=== PATIENT | male | born 1955 | race Caucasian/White ===

== ENCOUNTER 2018-06-28 19:58 | Emergency (ER) | payer OTHER ==
[2018-06-28] MEDS ORDERED: Albuterol/Ipratropium 3.0-0.5 MG/3 ML Neb Soln NEB ONE (20:19)
[2018-06-28] MEDS ORDERED: Sodium Chloride 0.9% 10 ML Syringe FLUSH PRN (20:21)
--- NOTE | 2018-06-28 20:23 | EDM.PDOC ---
ED HPI GENERAL MEDICAL PROBLEM - General Chief Complaint: Respiratory Problem Stated Complaint: SOB Time Seen by Provider: 06/28/18 20:01 Source of Information: Reports: Patient History Limitations: Reports: No Limitations - History of Present Illness INITIAL COMMENTS - FREE TEXT/NARRATIVE: 63-year-old male presents for evaluation and treatment of shortness of breath. Patient states that this is has been going on for several weeks and is progressively getting worse. Reports associated symptoms of a productive cough and lightheadedness. He denies any chest pain, abdominal pain, fevers, chills, lightheadedness, dizziness, ear pain or throat pain. States he is coughing up a thick sputum. He also reports swelling in his legs recently. Denies any chronic lung condition such as COPD or asthma. Reports a non confirmed diagnosis of muscular dystrophy. States he has been told by one hospital he had MD and another he had a negative biposy. Primary care provider was Jeanette Del Rosario, he has not established any primary care provider since she has left. - Related Data Allergies Allergy/AdvReac Type Severity Reaction Status Date / Time No Known Allergies Allergy Verified 06/28/18 20:19 Home Meds: Home Meds Furosemide [Lasix] 20 mg PO DAILY #14 tab 06/28/18 [Rx] Potassium Chloride [Klor-Con 10] 10 meq PO DAILY #14 tab.er 06/28/18 [Rx] ED ROS GENERAL - Review of Systems Review Of Systems: See Below Constitutional: Denies: Fever, Chills HEENT: Denies: Ear Pain, Throat Pain Respiratory: Reports: Shortness of Breath, Cough, Sputum Cardiovascular: Reports: Lightheadedness. Denies: Chest Pain GI/Abdominal: Denies: Abdominal Pain, Nausea, Vomiting Musculoskeletal: Reports: Leg Pain (reports leg swelling) Neurological: Denies: Syncope ED EXAM, GENERAL - Physical Exam Exam: See Below Exam Limited By: No Limitations General Appearance: Alert, WD/WN, Moderate Distress, Thin Eye Exam: Bilateral Eye: Normal Inspection Ears: Normal External Exam Nose: Normal Inspection Throat/Mouth: Normal Inspection, Normal Lips, Normal Oropharynx, Normal Voice, No Airway Compromise Respiratory/Chest: No Respiratory Distress, Decreased Breath Sounds, Other ( pectus excavatum). No: Crackles, Rhonchi Cardiovascular: Normal Peripheral Pulses, Regular Rate, Rhythm, No Murmur GI/Abdominal: Soft, Non-Tender Extremities: Other (1+ pitting edema bilaterally) Neurological: Alert, Oriented, Normal Cognition Psychiatric: Normal Affect, Normal Mood Skin Exam: Warm, Dry, Normal Color EKG INTERPRETATION EKG Date: 06/28/18 Time: 20:30 Rhythm: NSR Rate (Beats/Min): 94 Point: Normal P-Wave: Present QRS: Normal ST-T: Normal QT: Normal Comparison: NA - No Prior EKG EKG Interpretation Comments: Sinus rhythm at 94 bpm. Early R-wave transition. Right ventricular hypertrophy pattern. Right axis deviation. Considered old posterior wall LA. T-wave inversion V1 through V3 -consider anterior wall ischemia cannot be ruled out. Biatrial hypertrophy. Reviewed by myself and Dr. Spring. Course - Vital Signs Last Recorded V/S: Last Vital Signs Temp 97.1 F 06/28/18 20:11 Pulse 98 06/28/18 20:11 Resp 16 06/28/18 20:11 BP 149/96 H 06/28/18 20:11 Pulse Ox 97 06/28/18 20:36 - Orders/Labs/Meds Labs: Laboratory Tests 06/28/18 06/28/18 06/28/18 Range/Units 20:28 20:28 20:28 WBC 6.25 (4.23-9.07) K/mm3 RBC 4.91 (4.63-6.08) M/mm3 Hgb 16.9 (13.7-17.5) gm/L Hct 51.3 H (40.1-51.0) % MCV 104.5 H (79.0-92.2) fl MCH 34.4 H (25.7-32.2) pg MCHC 32.9 (32.2-35.5) g/dl RDW Std Deviation 57.1 H (35.1-43.9) fL Plt Count 140 L (163-337) K/mm3 MPV 11.1 (9.4-12.3) fl Neutrophils % (Manual) 62 H (40-60) % Band Neutrophils % 0 (0-10) % Lymphocytes % (Manual) 33 (20-40) % Atypical Lymphs % 0 % Monocytes % (Manual) 4 (2-10) % Eosinophils % (Manual) 1 (0.8-7.0) % Basophils % (Manual) 0 L (0.2-1.2) Platelet Estimate Adequate RBC Morph Comment Normal D-Dimer, Quantitative 0.30 (0.19-0.50) mg/L Sodium 144 (136-145) mEq/L Potassium 4.3 (3.5-5.1) mEq/L Chloride 105 (98-107) mEq/L Carbon Dioxide 35 H (21-32) mEq/L Anion Gap 8.3 (5-15) BUN 13 (7-18) mg/dL Creatinine 0.8 (0.7-1.3) mg/dL Est Cr Clr Drug Dosing 125.36 mL/min Estimated GFR (MDRD) > 60 (>60) mL/min BUN/Creatinine Ratio 16.3 (14-18) Glucose 154 H (80-115) mg/dL Calcium 8.5 (8.5-10.1) mg/dL Total Bilirubin 0.6 (0.2-1.0) mg/dL AST 26 (15-37) U/L ALT 26 (16-63) U/L Alkaline Phosphatase 65 (46-116) U/L Creatine Kinase (39-308) U/L CK-MB (CK-2) (0-3.6) ng/ml Troponin I 0.032 (0.00-0.056) ng/mL C-Reactive Protein < 0.2 (<1.0) mg/dL NT-Pro-B Natriuret Pep (0-125) pg/mL Total Protein 6.1 L (6.4-8.2) g/dl Albumin 3.1 L (3.4-5.0) g/dl Globulin 3.0 gm/dL Albumin/Globulin Ratio 1.0 (1-2) TSH 3rd Generation (0.358-3.74) uIU/mL 06/28/18 06/28/18 06/28/18 Range/Units 20:28 20:28 20:28 WBC (4.23-9.07) K/mm3 RBC (4.63-6.08) M/mm3 Hgb (13.7-17.5) gm/L Hct (40.1-51.0) % MCV (79.0-92.2) fl MCH (25.7-32.2) pg MCHC (32.2-35.5) g/dl RDW Std Deviation (35.1-43.9) fL Plt Count (163-337) K/mm3 MPV (9.4-12.3) fl Neutrophils % (Manual) (40-60) % Band Neutrophils % (0-10) % Lymphocytes % (Manual) (20-40) % Atypical Lymphs % % Monocytes % (Manual) (2-10) % Eosinophils % (Manual) (0.8-7.0) % Basophils % (Manual) (0.2-1.2) Platelet Estimate RBC Morph Comment D-Dimer, Quantitative (0.19-0.50) mg/L Sodium (136-145) mEq/L Potassium (3.5-5.1) mEq/L Chloride (98-107) mEq/L Carbon Dioxide (21-32) mEq/L Anion Gap (5-15) BUN (7-18) mg/dL Creatinine (0.7-1.3) mg/dL Est Cr Clr Drug Dosing mL/min Estimated GFR (MDRD) (>60) mL/min BUN/Creatinine Ratio (14-18) Glucose (80-115) mg/dL Calcium (8.5-10.1) mg/dL Total Bilirubin (0.2-1.0) mg/dL AST (15-37) U/L ALT (16-63) U/L Alkaline Phosphatase (46-116) U/L Creatine Kinase 211 (39-308) U/L CK-MB (CK-2) 20.7 H (0-3.6) ng/ml Troponin I (0.00-0.056) ng/mL C-Reactive Protein (<1.0) mg/dL NT-Pro-B Natriuret Pep 801 H (0-125) pg/mL Total Protein (6.4-8.2) g/dl Albumin (3.4-5.0) g/dl Globulin gm/dL Albumin/Globulin Ratio (1-2) TSH 3rd Generation 4.972 H (0.358-3.74) uIU/mL Meds: Medications Discontinued Medications Generic Name Dose Route Start Last Admin Trade Name Freq PRN Reason Stop Dose Admin Albuterol/Ipratropium 3 ml 06/28/18 20:19 06/28/18 20:35 Duoneb 3.0-0.5 Mg/3 Ml NEB 08/17/18 20:20 3 ml ONETIME ONE Administration Furosemide 40 mg 06/28/18 21:45 06/28/18 21:59 Lasix IVPUSH 06/28/18 21:46 40 mg NOW ONE Administration Sodium Chloride 10 ml 06/28/18 20:21 06/28/18 20:36 Saline Flush FLUSH 10 ml ASDIRECTED PRN Administration Keep Vein Open - Radiology Interpretation Free Text/Narrative:: Chest x-ray reviewed by myself and Dr. Spring. No pneumothorax appreciated. No obvious pneumonia appreciated - Re-Assessments/Exams Free Text/Narrative Re-Assessment/Exam: 06/28/18 23:03 Patient feeling improved after the DuoNeb. He was taken off his oxygen and maintained in the low to mid 90s on room air. I asked nursing staff to perform an ambulatory pulse ox on him and he did drop at the upper 80s but once sitting and resting returned to the mid 90s. Recommend admission. Discussed with the patient that we could offer him inpatient admission due to his hypoxia. He can be managed with IV Lasix, oxygen as needed. He would require an echocardiogram in the near future but would be unable to do this this weekend. Patient is not interested in coming into the hospital. He would like to go home tonight. He states he will return if his symptoms change or worsen. Departure - Departure Time of Disposition: 23:27 Disposition: Home, Self-Care 01 Condition: Fair Clinical Impression: Edema, Heart failure - Discharge Information *PRESCRIPTION DRUG MONITORING PROGRAM REVIEWED*: No *COPY OF PRESCRIPTION DRUG MONITORING REPORT IN PATIENT MIK: No Prescriptions: Furosemide [Lasix] 20 mg PO DAILY #14 tab Potassium Chloride [Klor-Con 10] 10 meq PO DAILY #14 tab.er Instructions: Edema, Heart Failure, [id number] Referrals: PCP,None [Primary Care Provider] - Elsi Whipple MD [Physician] - Forms: ED Department Discharge Additional Instructions: Follow-up in the clinic next week for a recheck of your symptoms. Recommend Dr. Whipple or Angela Gay at the [facility]. Call [phone] to schedule with one of these providers. Lasix 1 tab PO daily. Potassium 1 tab PO daily, lasix will lower your potassium. Elevate your legs. Recommend at least limiting your tobacco use. Please return to the ER should your symptoms change or worsen.
[2018-06-28] MEDS ORDERED: Furosemide 40 MG/4 ML VIAL IVPUSH ONE (21:45)
--- NOTE | 2018-07-01 19:39 | CR ---
Chest: Portable view of the chest was obtained. Comparison: No prior chest x-ray. Heart size and mediastinum are within normal limits for portable technique. Linear densities are seen within the right lung base believed to be due to scarring. Lungs are hyperinflated compatible with emphysematous change. Bony structures are grossly intact. Impression: 1. Nothing acute is seen. Other findings as noted above. Diagnostic code #2
== END 2018-06-28 23:50 | disposition home or self-care (01) ==
LOC: JD.ED 19:58
DX: I50.9 Heart failure, unspecified (principal)
CPT/HCPCS: 36415; 71045; 80053; 82550; 82553; 83880; 84443; 84484; 85007; 85027; 85379; 86140; 87070; 87205; 93005; 94640; 96374; 99285; J1940; J7050; J7620-GY